=== PATIENT | male | born 1945 | race Two or more races ===

== ENCOUNTER 2016-06-13 20:49 | Emergency (ER) | payer OTHER, MEDICAID ==
[2016-06-13 21:02] VITALS: RESP 16; TEMP 97.5
--- NOTE | 2016-06-13 21:11 | EDPHY ---
H & P Stated Complaint: abd pain, shaking hands HPI/ROS: CHIEF COMPLAINT: Shaking hands, liver cirrhosis HISTORY OF PRESENT ILLNESS: The patient is a 71 y/o male, with a history of hepatitis C and liver cirrhosis, complaining of bilateral hand shaking onset today. He complains of associated fatigue and mild abdominal pain. He has existing complications related to his cirrhosis including portal vein hypertension. He has known gallstones. He required a paracentesis 6 months ago. He denies vomiting, chest pain, shortness of breath, fever. His family states he is mentating appropriately. He is not on anticoagulants. History obtained with the help of family member who translated for me--patient is from [place], speaks some Portuguese. REVIEW OF SYSTEMS: A ten point review of systems was performed and is negative with the exception of the items mentioned in the HPI. Source: Patient, Family - Personal History Current Tetanus/Diphtheria Vaccine: Unsure Current Tetanus Diphtheria and Acellular Pertussis (TDAP): Unsure - Medical/Surgical History PMH: PMH include: 1. Hepatitis C-induced cirrhosis 2. Esophageal varices 3. Portal vein hypertension 4. Gallstones 5. Hypertension 6. GERD Reviewed patient's discharge paperwork. Endoscopy from [facility] in [place] dated 05/11/16 showed non-bleeding large 5mm esophageal varices, which were banded, portal hypertensive gastropathy, and normal duodenum. Hx Asthma: No Hx Chronic Respiratory Disease: No Hx Diabetes: No Hx Cardiac Disease: No Hx Renal Disease: No Hx Cirrhosis: Yes Hx Alcoholism: No Hx HIV/AIDS: No Hx Splenectomy or Spleen Trauma: No Other PMH: cirrohsis, portal vein HTN, Gall bladder problems - Social History Smoking Status: Never smoked Additional Social History: No alcohol use. Family at bedside. From [place]. - Physical Exam Exam: General Appearance: Alert. Vital signs reviewed. blood pressure 173/119. Eyes: Pupils equal and round, no conjunctival injection, no discharge. Anicteric. ENT, Mouth: Mucous membranes are moist, no oropharyngeal erythema or edema. Neck: No lymphadenopathy, supple. Respiratory: Lungs are clear to auscultation; no wheezes, rales, or rhonchi. Cardiovascular: Regular rate and rhythm; no murmur, rub, or gallop. Gastrointestinal: Abdomen is soft and nontender, no masses, mildly hepatomegaly , bowel sounds normal. No distension. Skin: Warm and dry, no rashes on exposed skin, normal color. Back: Nontender to palpation over the thoracolumbar spine. No CVAT. Extremities: No lower extremity edema, no calf tenderness or swelling. Neurological: Alert and oriented. Moving all four extremities easily and equally. Mild Asterixis present. PERRL. EOMI. Facial expressions symmetric. Tongue midline. Psychiatric: Normal affect. Constitutional: Initial Vital Signs Temperature (C) 36.4 C 06/13/16 20:58 Heart Rate 63 06/13/16 20:58 Respiratory Rate 16 06/13/16 20:58 Blood Pressure 173/119 H 06/13/16 20:58 O2 Sat (%) 98 06/13/16 20:58 O2 Delivery Mode Room Air Allergies/Adverse Reactions: No Known Allergies Allergy (Unverified 06/13/16 20:55) Home Medications: Medication Instructions Recorded Advil 06/13/16 Ferrous Sulfate 06/13/16 Lactulose [Constulose] 20 gm PO DAILY #600 ml 06/13/16 Multi-Vitamin Daily 06/13/16 Omeprazole 06/13/16 Pantoprazole Sodium 06/13/16 Propranolol HCl 06/13/16 Spironolactone 06/13/16 Medical Decision Making ED Course/Re-evaluation: IV established. Labs drawn including CBC, CHEM, lipase, LFTs, ammonia, PTPTT. Ammonia level elevated at 163. LFTs are normal. 2240: Consulted with Dr. Salgado, hospitalist. She recommends starting lactulose and, based upon my description, agrees that he can return home with follow up. Lactulose RX with instructions provided. Danger signs that should prompt return were reviewed. Patient and family understand that lactulose will cause stooling. Patient referred to Dr. Akers, as he does not have a local physician and will be in [place] for another month. Follow up strongly recommended. He does not appear ill or in distress tonight. No fever. No significant abdominal pain on exam. No appreciable fluid on abdominal exam. BP and HR improved while in ED. ( BP 152/89, still high but better than on arrival--he is advised to have this rechecked by PCP). Differential Diagnosis: I considered a ddx of hyperammonemia, advancing liver failure, electrolyte abnormality, intra-abdominal infection (SBP, cholecystitis). - Data Points Laboratory Results: Laboratory Results 06/13/16 21:30 06/13/16 21:30 Departure - Departure Disposition: Home, Routine, Self-Care Clinical Impression: Hyperammonemia Condition: Good Instructions: Cirrhosis (ED) Additional Instructions: 1. Take Lactulose as prescribed. Take 20 g daily. This should cause you to have 2-3 bowel movements every day. If you are having fewer than 3 bowel movements daily you should increase the dose of lactulose. Try taking 20 g twice daily and see if that increases the number of stools you are having. 2. Follow up with your primary care provider this week. We are referring you to a primary care doctor. You should call the office on Tuesday and schedule an appointment. Let the office staff know that you were seen in the emergency department and referred by the emergency department. 3. Return to the ED for any worsening of condition, particularly confusion and lethargy. Try looking for a registered clinical photoresist contact printer for dietary advice. Referrals: [facility] [Other] - As per Instructions John Kenyon MD [Medical Doctor] - As per Instructions Prescriptions: Lactulose [Constulose] 20 gm PO DAILY #600 ml Report Scribed for: Eulalia Parrish Report Scribed by: Amie Ferguson Date of Report: 06/13/16 Time of Report: 21:36 Physician Review and Approval Statement: 06/13/16 21:11 Portions of this note were transcribed by the medical doctor md. I, Dr. Eulalia Parrish, personally performed the history, physical exam, and medical decision- making; and confirmed the accuracy of the information in the transcribed note.
[2016-06-13 22:06] LABS: ALANINE AMINOTRANSFERASE 54 IU/L (21-72); ALBUMIN 3.5 g/dL (3.5-5.0); ALKALINE PHOSPHATASE 107 IU/L (38-126); ANION GAP 8 mEq/L (8-16); ASPARTATE AMINOTRANSFERASE 54 IU/L (17-59); BILIRUBIN,TOTAL 1.1 mg/dL (0.1-1.4); BILIRUBIN-CONJUGATED 0.4 mg/dL (0.0-0.5); BILIRUBIN-UNCONJUGATED 0.7 mg/dL (0.0-1.1); CALCIUM 9.2 mg/dL (8.5-10.4); CARBON DIOXIDE 22 mEq/l (22-31); CHLORIDE 112 mEq/L (97-110); CREATININE 1.5 mg/dL (0.7-1.3); GLOMERULAR FILTRATION RATE 46; GLUCOSE 124 mg/dL (70-100); POTASSIUM 4.4 mEq/L (3.5-5.2); SODIUM 142 mEq/L (134-144); TOTAL PROTEIN 7.8 g/dL (6.3-8.2)
[2016-06-13 22:12] LABS: APTT 29.8 SEC (23.0-38.0); INR 1.26 (0.83-1.16); PROTIME(PATIENT) 15.8 SEC (12.0-15.0)
[2016-06-13 22:13] LABS: % IMMATURE GRANULYOCYTES 0.4 % (0.0-1.1); ABSOLUTE IMMATURE GRANULOCYTES 0.02 10^3/uL (0.00-0.10); ADD DIFF? NO; ADD MORPH? NO; ADD SCAN? NO; ATYPICAL LYMPHOCYTE FLAG 20 (0-99); FRAGMENT RBC FLAG 0 (0-99); HEMATOCRIT 46.4 % (40.0-51.0); HEMOGLOBIN 15.7 g/dL (13.7-17.5); LEFT SHIFT FLG 0 (0-99); LIPEMIA HEMOLYSIS FLAG 90 (0-99); MEAN CELL HEMOGLOBIN 31.3 pg (27.9-34.1); MEAN CELL HEMOGLOBIN CONCENTR. 33.8 g/dL (32.4-36.7); MEAN CELL VOLUME 92.4 fL (81.5-99.8); MEAN PLATELET VOLUME 11.3 fL (8.7-11.7); PLATELET CLUMPS FLAG 0 (0-99); PLATELET COUNT 65 10^3/uL (150-400); RED BLOOD CELL COUNT 5.02 10^6/uL (4.40-6.38); RED CELL DISTRIBUTION WIDTH 15.6 % (11.5-15.2)
[2016-06-13 23:04] VITALS: BP 152/89; PULSE 87; O2SAT 96
== END 2016-06-13 23:04 | disposition home or self-care (01) ==
DX: E72.20 Disorder of urea cycle metabolism, unspecified (principal); I10 Essential (primary) hypertension